=== PATIENT | female | born 1965 | race Caucasian/White ===

== ENCOUNTER 2017-12-01 22:56 | Emergency (ER) | payer OTHER ==
[~2017-12-01] VITALS: Ht 152.4 cm; Wt 55.1 kg
[2017-12-01 23:00] VITALS: TEMP 36.8; Ht 152.4 cm; Wt 55.1 kg
[2017-12-01] MEDS ORDERED: ALBUT/IPRATROP 3MG/0.5MG NEB 3 ML VIAL INH STA (23:16)
[2017-12-01] MEDS ORDERED: METHYLPREDNISOLONE 125 MG VIAL IV STA (23:16)
[2017-12-01] MEDS ORDERED: SERT-234 PO (23:26)
[2017-12-01] MEDS ORDERED: PRED20TA PO (23:27)
[2017-12-01] MEDS ORDERED: DOXY100C76 PO (23:28)
[2017-12-01] MEDS ORDERED: ALBU18002 INH (23:28)
--- NOTE | 2017-12-01 23:39 | EMERGENCY ROOM VISIT NOTE ---
History Report prepared by Alfred: Nilton Mendosa Under the Supervision of: Dr. Anita Watson D.O. First contact with patient: 23:09 Chief Complaint: SHORTNESS OF BREATH Stated Complaint: SHORTNESS OF BREATH, RUNNY NOSE History of Present Illness The patient is a 52 year old female who presents to the Emergency Room with complaints of worsening shortness of breath beginning one week ago. She currently rates her discomfort a 3/10 in severity. The patient states she became sick with what she thought was a head cold. She reports she was evaluated by her PCP and was placed on Z-pack and a tapering dose of prednisone. The patient notes she finished the Z-pack and was still not feeling better. She states she called her PCP back and was told to start taking doxycycline. The patient reports she is still on the prednisone, and the doxycycline is still not helping. She notes she has a history of asthma and last used her inhaler 4 hours ago. The patient states her symptoms seem to be worse at night, and there will only be about 3 hours during the day where she feels good. She reports he cough is mildly productive with clear phlegm. The patient notes she is also experiencing excessive thirst and more leg cramps than usual. She states she developed a fever that resolved after four days of the onset of her cold. The patient reports she has not been moving her bowels like she normally does. She notes she is a current smoker and has not been able to smoke as much as she normally does. The patient denies any other medical issues, abdominal pain, trouble urinating, burning with urination, and leg swelling. She notes her PCP is Dr. Mendez Hamlin. Source of History: patient Onset: one week ago Symptom Intensity: 3/10 Quality: other (SOB) Timing: worsening Associated Symptoms: + cough (mildly productive, clear phlegm), No abdominal pain Note: Associated symptoms: excessive thirst, more leg cramps, trouble moving her bowels Denies: trouble urinating, burning with urination, leg swelling Review of Systems See HPI for pertinent positives & negatives. A total of 10 systems reviewed and were otherwise negative. Past Medical & Surgical Medical Problems: (1) Asthma Family History Patient reports no known family medical history. Social History Smoking Status: Current Every Day Smoker Occupation Status: employed Current/Historical Medications Scheduled Doxycycline Monohydrate (Monodox), 100 MG PO BID Prednisone (Prednisone), 1 TAB PO DAILY Sertraline (Zoloft), 200 MG PO DAILY Scheduled PRN Albuterol Sulfate (Proair Respiclick), 1 DOSE INH DIRECTED PRN for Shortness of Breath Allergies Coded Allergies: Iodinated Diagnostic Agents (Verified Allergy, Unknown, asthma attack, 12/01) Physical Exam Vital Signs Date Time Temp Pulse Resp B/P (MAP) Pulse Ox O2 Delivery O2 Flow Rate FiO2 12/02/17 01:31 123/72 12/02/17 01:14 92 23 91 Room Air 12/02/17 01:01 111/90 12/02/17 00:44 86 17 91 12/02/17 00:40 87 12/02/17 00:39 118/75 12/02/17 00:31 125/72 12/02/17 00:06 85 16 96 12/02/17 00:01 121/67 12/01/17 23:56 79 13 100 12/01/17 23:49 140/80 12/01/17 23:00 36.8 89 22 110/75 93 Room Air Physical Exam HEENT: Head - normocephalic and atraumatic Pupils are equal, round, and reactive to light. Extraocular eye muscles are intact, and sclera are anicteric. Nose - moist nasal mucosa without discharge. Mouth - extremely dry cracked, and ulcerated buccal mucosa. Oropharynx is nonerythematous and there is no tonsillar exudate or edema noted. Neck: Supple; no JVD, nuchal rigidity, cervical lymphadenopathy. Heart: Regular rate and rhythm. There is a normal S1 and S2 with no murmurs, clicks, or gallops appreciated. Lungs: Inspiratory and expiratory wheezing. Rhonchi in all lung razo. Abdomen: Soft, completely nontender, nondistended, with good bowel sounds. There are no palpable pulsatile masses or hepatosplenomegaly. There is no guarding, rigidity, or rebound noted. Extremities: No evidence of cyanosis, clubbing, or edema. There are easily palpable peripheral pulses. Skin: warm and dry with good turgor and no rashes. Medical Decision & Procedures ER Provider Diagnostic Interpretation: X-ray results as stated below per interpretation by me: Chest X-ray: No pulmonary infiltrate or lung consolidation. Laboratory Results 12/01/17 23:35 Red Blood Count 4.31, Mean Corpuscular Volume 94.7, Mean Corpuscular Hemoglobin 32.7, Mean Corpuscular Hemoglobin Concent 34.6, Mean Platelet Volume 9.5, Neutrophils (%) (Auto) 58.2, Lymphocytes (%) (Auto) 33.1, Monocytes (%) (Auto) 7.0, Eosinophils (%) (Auto) 1.1, Basophils (%) (Auto) 0.2, Neutrophils # (Auto) 4.91, Lymphocytes # (Auto) 2.79, Monocytes # (Auto) 0.59, Eosinophils # (Auto) 0.09, Basophils # (Auto) 0.02 12/01/17 23:35 Test 12/01/17 23:35 White Blood Count 8.43 K/uL (4.8-10.8) Red Blood Count 4.31 M/uL (4.2-5.4) Hemoglobin 14.1 g/dL (12.0-16.0) Hematocrit 40.8 % (37-47) Mean Corpuscular Volume 94.7 fL (80-100) Mean Corpuscular Hemoglobin 32.7 pg (25-34) Mean Corpuscular Hemoglobin Concent 34.6 g/dl (32-36) Platelet Count 356 K/uL (130-400) Mean Platelet Volume 9.5 fL (7.4-10.4) Neutrophils (%) (Auto) 58.2 % Lymphocytes (%) (Auto) 33.1 % Monocytes (%) (Auto) 7.0 % Eosinophils (%) (Auto) 1.1 % Basophils (%) (Auto) 0.2 % Neutrophils # (Auto) 4.91 K/uL (1.4-6.5) Lymphocytes # (Auto) 2.79 K/uL (1.2-3.4) Monocytes # (Auto) 0.59 K/uL (0.11-0.59) Eosinophils # (Auto) 0.09 K/uL (0-0.5) Basophils # (Auto) 0.02 K/uL (0-0.2) RDW Standard Deviation 45.5 fL (36.4-46.3) RDW Coefficient of Variation 13.0 % (11.5-14.5) Immature Granulocyte % (Auto) 0.4 % Immature Granulocyte # (Auto) 0.03 K/uL (0.00-0.02) Anion Gap 7.0 mmol/L (3-11) Est Creatinine Clear Calc Drug Dose 67.4 ml/min Estimated GFR () 104.5 Estimated GFR (Non- 90.2 BUN/Creatinine Ratio 21.1 (10-20) Calcium Level 9.1 mg/dl (8.5-10.1) Troponin I < 0.015 ng/ml (0-0.045) Pro-B-Type Natriuretic Peptide 131 pg/ml (0-900) Laboratory results per my review. Medications Administered Medications (Trade) Dose Ordered Sig/Ira Route Start Time Stop Time Status Last Admin Dose Admin Albuterol/ Ipratropium (Duoneb) 3 ml NOW STAT INH 12/01/17 23:16 12/01/17 23:18 DC 12/01/17 23:43 3 ML Methylprednisolone Sodium Succinate (Solu-Medrol IV) 125 mg NOW STAT IV 12/01/17 23:16 12/01/17 23:18 DC 12/01/17 23:44 125 MG Albuterol/ Ipratropium (Combivent Respimat Inh) 2 puffs NOW STAT INH 12/02/17 01:11 12/02/17 01:13 DC 12/02/17 01:37 2 PUFFS Procedure 2316: Ordered Solu-Medrol 125mg IV, Duoneb 3ml INH 0111: Ordered Combivent Respimat Inh 2 puffs INH ECG Per My Interpretation Indication: SOB/dyspnea Rate (beats per minute): 80 Rhythm: normal sinus Findings: no acute ischemic change, no ectopy, other (No ST changes.) ED Course 2311: The patient was evaluated in room B02. A complete history and physical examination were performed. Nursing notes and previous electronic medical records were reviewed. IV lock was established and labs were drawn as above. A 12-lead EKG was obtained. 2316: Ordered Solu-Medrol 125mg IV, Duoneb 3ml INH. The patient had a chest x- ray as described above. 0039: I reevaluated the patient. She is feeling much better. Her repeat lung exam was mostly clear. 0104: Upon reevaluation, the patient was feeling better. I discussed findings and results with her. She verbalized agreement of the treatment plan. She will receive a Combivent inhaler and continue her Prednisone taper and finish her antibiotics. The patient will be discharged home after she receives her medication. Her O2Sat on room air is 91%. 0111: Ordered Combivent Respimat Inh 2 puffs INH Medical Decision The patient is a 52 year old female who presents to the ED with worsening shortness of breath. Differential diagnosis includes bronchitis, pneumonia, asthma exacerbation, CHF, diabetes, dehydration. Labs results show: No leukocytosis, stable H&H, negative troponin, BNP of 131, normal glucose, and normal renal function. This is a 52-year-old female patient presents to the emergency department with worsening shortness of breath and cough despite taking a prednisone taper and a second course of antibiotics. I believe the patient is suffering from an acute exacerbation of her asthma and a possible persistent bronchitis which may be viral in origin. The patient had significant improvement after receiving the DuoNeb nebulizer treatment. Chest x-ray reveals no evidence of an acute consolidation or pneumonia. She received an IV dose of Solu-Medrol. She will continue the prednisone taper and finish the doxycycline. I have asked the patient to stop smoking. I suggested she follow-up with her PCP for possible new nebulizer machine. The patient was given a Combivent inhaler to use every 6 hours and then she can use her Ventolin inhaler as a rescue inhaler in between. Medication Reconcilliation Current Medication List: was personally reviewed by me Blood Pressure Screening Patient's blood pressure: Normal blood pressure Blood pressure disposition: Did not require urgent referral Impression Primary Impression: Asthma exacerbation Scribe Attestation The scribe's documentation has been prepared under my direction and personally reviewed by me in its entirety. I confirm that the note above accurately reflects all work, treatment, procedures, and medical decision making performed by me. Departure Information Dispostion Home / Self-Care Referrals Mayito Mendez M.D. Forms HOME CARE DOCUMENTATION FORM, IMPORTANT VISIT INFORMATION Patient Instructions Asthma Control, Asthma Meds, My [facility] Additional Instructions Rest. No work 12/02/17 Follow up with PCP for a new nebulizer Combivent - 2 puffs every 6 hours with using the ventolin inhaler in between as a rescue inhaler Finish steroids and doxycycline Problem Qualifiers Primary Impression: Asthma exacerbation Asthma severity: moderate Asthma persistence: persistent Qualified Codes: J45.41 - Moderate persistent asthma with (acute) exacerbation
[2017-12-01 23:58] LABS: BASO % 0.2 %; BASO ABS # 0.02 K/uL (0-0.2); EOS % 1.1 %; EOS ABS # 0.09 K/uL (0-0.5); HEMATOCRIT 40.8 % (37-47); HEMOGLOBIN 14.1 g/dL (12.0-16.0); IG# 0.03 K/uL (0.00-0.02); LYMPH % 33.1 %; LYMPH ABS # 2.79 K/uL (1.2-3.4); MEAN CELL VOLUME 94.7 fL (80-100); MEAN CORPUSCULAR HEMOGLOBIN 32.7 pg (25-34); MEAN CORPUSCULAR HGB CONC 34.6 g/dl (32-36); MEAN PLATELET VOLUME 9.5 fL (7.4-10.4); MONO ABS # 0.59 K/uL (0.11-0.59); NEUT % 58.2 %; NEUT ABS # 4.91 K/uL (1.4-6.5); PLATELET COUNT 356 K/uL (130-400); RED CELL DISTRIBUTION WIDTH SD 45.5 fL (36.4-46.3); WHITE BLOOD COUNT 8.43 K/uL (4.8-10.8)
[2017-12-02 00:22] LABS: BLOOD UREA NITROGEN 16 mg/dl (7-18); CALCIUM 9.1 mg/dl (8.5-10.1); CARBON DIOXIDE 27 mmol/L (21-32); CREATININE 0.76 mg/dl (0.60-1.20); GLUCOSE 98 mg/dl (70-99); POTASSIUM 3.7 mmol/L (3.5-5.1); SODIUM 143 mmol/L (136-145)
[2017-12-02] MEDS ORDERED: IPRATROPIUM BROMIDE/ALBUTEROL respimat INH INH STA (01:11)
[2017-12-02 01:14] VITALS: PULSE 92; O2SAT 91
[2017-12-02 01:31] VITALS: BP 123/72
--- NOTE | 2017-12-02 06:39 | DIAGNOSTIC IMAGING REPORT ---
CHEST 2 VIEWS ROUTINE CLINICAL HISTORY: cough/asthma dyspnea COMPARISON STUDY: No previous studies for comparison. FINDINGS: Mild emphysematous change. No focal infiltrate. Diaphragms are smooth. IMPRESSION: Mild emphysematous change. No acute process. The above report was generated using voice recognition software. It may contain grammatical, syntax or spelling errors. Electronically signed by: Nima Arenas M.D. 12/02/2017 6:38 AM Dictated Date/Time: 12/02/2017 6:37 AM
== END 2017-12-02 01:42 | disposition home or self-care (01) ==
LOC: C.EDB 22:58
DX: J45.41 Moderate persistent asthma with (acute) exacerbation (principal); K12.1 Other forms of stomatitis; F17.200 Nicotine dependence, unspecified, uncomplicated; Z91.041 Radiographic dye allergy status